=== PATIENT | female | born 1990 | race Caucasian/White ===

== ENCOUNTER 2023-07-12 07:38 | Observation (INO) | payer BC ==
[2023-07-12] VITALS (8 sets, daily range): BP systolic 115–157; BP diastolic 75–98; TEMP 97.9–99; O2SAT 92–97
[~2023-07-12] VITALS: Ht 157.5 cm; Wt 80.9 kg
[~2023-07-12 07:38] MED LIST: HEPARIN SOD (PORCINE) 5000UNITS/ML 1ML VIAL/SYRINGE SQ ONE; PHEN37.58 PO
[2023-07-12] MEDS ORDERED: LIDOCAINE 1% SDV 5ML VIAL SC PRN (07:45)
[2023-07-12] MEDS ORDERED: LR 1,000 ML IV SCH ×2 (07:45→12:50)
[2023-07-12] MEDS ORDERED: CLINDAMYCIN 900 MG in IV 1 EA IV ONE ×2 (08:20→16:00)
[2023-07-12] MEDS ORDERED: GENTAMICIN SULF 80MG/2ML VIAL As Ordered ONE (08:48)
[2023-07-12] MEDS ORDERED: propofoL 200 MG/20 ML VIAL As Ordered ONE (08:54)
[2023-07-12] MEDS ORDERED: LIDOCAINE 2% 100MG/5ML SDV (FOR ANES.) As Ordered ONE (08:54)
[2023-07-12] MEDS ORDERED: ONDANSETRON 4MG 2ML VIAL As Ordered ONE (08:54)
[2023-07-12] MEDS ORDERED: MIDAZOLAM INJ 2MG/2ML VIAL As Ordered ONE (08:54)
[2023-07-12] MEDS ORDERED: fentaNYL 250 MCG/5 ML INJECTION As Ordered ONE (08:54)
[2023-07-12] MEDS ORDERED: ROCURONIUM BROMIDE 50MG/5ML VIAL As Ordered ONE ×2 (08:54→10:39)
[2023-07-12] MEDS ORDERED: SCOPOLAMINE 1MG TRANSDERMAL PATCH TOP ONE (09:00)
[2023-07-12] MEDS ORDERED: LACRILUBE (AKWA TEARS) OPHTH OINT 3.5GM As Ordered ONE (09:45)
[2023-07-12] MEDS ORDERED: ACETAMINOPHEN 1000MG 100ML IV BAG As Ordered ONE (09:45)
[2023-07-12] MEDS ORDERED: HYDROmorphone HCL 2MG/ML 1ML VIAL As Ordered ONE (10:10)
[2023-07-12] MEDS ORDERED: SUGAMMADEX SODIUM 500 MG/5 ML VIAL (BRIDION) As Ordered ONE (11:08)
[2023-07-12] MEDS ORDERED: ONDANSETRON 4MG 2ML VIAL IV PRN ×2 (12:50→13:00)
[2023-07-12] MEDS ORDERED: oxyCODONE 5MG TAB PO PRN (12:50)
[2023-07-12] MEDS ORDERED: fentaNYL 100 MCG/2 ML INJECTION IV PRN (12:50)
[2023-07-12] MEDS ORDERED: METOCLOPRAMIDE INJ 10MG/2ML VIAL IV PRN (12:50)
[2023-07-12] MEDS ORDERED: HYDROMORPHONE HCL 0.5 MG/ 0.5 ML SYRINGE IV PRN (12:50)
[2023-07-12] MEDS ORDERED: PERCOCET 5MG/325MG TAB PO PRN (13:00)
[2023-07-12] MEDS ORDERED: ACETAMINOPHEN TAB 650MG DOSE (2X325MG) PO PRN (13:00)
[2023-07-12] MEDS: LR 1,000 ML IV SCH (13:00)
[2023-07-12] MEDS ORDERED: HOME MED LIST COMPLETE! XX SCH (14:10)
[2023-07-12] MEDS ORDERED: MED REC IN PROGRESS XX SCH (14:10)
[2023-07-12] MEDS: traMADol 50 MG TAB PO PRN (18:38)
[2023-07-13] MEDS: LR 1,000 ML IV SCH (00:29)
[2023-07-13] MEDS: traMADol 50 MG TAB PO PRN ×3 (00:40→12:20)
[2023-07-13 03:30] VITALS: BP 130/83; TEMP 97.9; O2SAT 95
[2023-07-13 06:40] VITALS: O2SAT 94
[2023-07-13] MEDS ORDERED: TRAM50TA2 PO (08:18)
== END 2023-07-13 12:25 | disposition home or self-care (01) ==
LOC: M SDC 07:38 → M MS5PR 12:59
PROVIDERS: ADMIT Plastic Surgery Surgery of the Hand; ATTEND Plastic Surgery Surgery of the Hand
DX: N62 Hypertrophy of breast (principal); N64.89 Other specified disorders of breast; M54.6 Pain in thoracic spine; M54.2 Cervicalgia; Z88.0 Allergy status to penicillin; Z88.2 Allergy status to sulfonamides; Z88.1 Allergy status to other antibiotic agents; Z80.8 Family history of malignant neoplasm of other organs or systems
CPT/HCPCS: 19318; 81025; 87635; 88305; 96361; 96374; C9290; J0131; J0665; J0737; J1100; J1170; J1580; J2250; J2405; J3010